=== PATIENT | born 1975 | race Caucasian/White ===

== ENCOUNTER 2024-02-15 10:47 | Emergency (ER) | payer MEDICAID ==
[~2024-02-15] VITALS: Ht 147.3 cm; Wt 97.2 kg
[2024-02-15 11:52] LABS: BASOPHILS # (AUTO) 0.1 X10'3 (0-0.2); BASOPHILS % (AUTO) 0.9 % (0-1); EOSINOPHILS % (AUTO) 0.3 % (0-6); HEMATOCRIT 36.6 % (35.0-52.0); HEMOGLOBIN 11.3 g/dl (12.0-17.9); LYMPHOCYTES # (AUTO) 1.2 X10'3 (1.1-4.8); MEAN CORPUSCULAR HEMOGLOBIN 27.5 PG (27.0-31.0); MEAN CORPUSCULAR HGB CONC 30.8 g/dL (33.0-36.5); MEAN CORPUSCULAR VOLUME 89.2 FL (78-98); MEAN PLATELET VOLUME 8.8 FL; MONOCYTES # (AUTO) 0.7 X10'3 (0-0.9); MONOCYTES % (AUTO) 12.5 % (2-12); NEUTROPHILS # (AUTO) 3.9 X10'3 (1.8-7.7); NEUTROPHILS % (AUTO) 65.3 % (42-75); PLATELET COUNT 271 X10'3 (140-440); RED BLOOD COUNT 4.11 X10'6 (4.20-6.10); RED CELL DISTRIBUTION WIDTH 20.2 %; WHITE BLOOD COUNT 5.9 X10'3 (4.5-11.0)
[2024-02-15 12:05] LABS: ALANINE AMINOTRANSFERASE 19 U/L (12-78); ALBUMIN 3.4 G/DL; ALKALINE PHOSPHATASE 261 IU/L (46-116); ANION GAP 12 (8-16); ASPARTATE AMINO TRANSFERASE 19 U/L; BILIRUBIN,TOTAL 2.2 MG/DL (0.1-1.0); BLOOD UREA NITROGEN 13 MG/DL (7-18); BUN/CREATININE RATIO 11.9 (10.0-20.0); CALCIUM 8.9 MG/DL (8.5-10.1); CHLORIDE 101 MMOL/L; CREATININE 1.09 MG/DL (0.40-1.10); GLUCOSE 90 MG/DL (70-104); POTASSIUM 4.1 MMOL/L (3.5-5.1); SODIUM 141 MMOL/L (135-145); TOTAL CARBON DIOXIDE 28.2 MMOL/L; TOTAL PROTEIN 6.8 G/DL; eGFR 73 ML/MIN
[2024-02-15 12:18] VITALS: BP 102/70; PULSE 87; RESP 16; TEMP 97.8; O2SAT 97
[2024-02-15 12:26] LABS: PLATELET ESTIMATE NORMAL
[2024-02-15 12:27] LABS: ANISOCYTOSIS 3+; POIKILOCYTOSIS 1+; POLYCHROMASIA 2+; STOMATOCYTES 1+; TARGET CELLS 1+
[2024-02-15] MEDS: oxyCODONE SR 10mg (sust. release) tab PO ONE (13:41)
[2024-02-15] MEDS ORDERED: OXYC10TA57 PO (14:03)
[2024-02-17 08:48] LABS: HEP B CORE AB, IGM Negative (Negative); HEP B SURF AB Non Reactive (.); HEPATITIS C VIRUS ANTIBODY Non Reactive (Non Reactive)
== END 2024-02-15 14:18 | disposition home or self-care (01) ==
LOC: ER 10:48
DX: D64.9 Anemia, unspecified (principal); K72.90 Hepatic failure, unspecified without coma; Z88.8 Allergy status to other drugs, medicaments and biological substances
CPT/HCPCS: 36415; 80053; 85008; 85025; 86705; 86706; 86803; 87522; 99283